=== PATIENT | male | born 1980 | race African-American/Black ===

== ENCOUNTER 2021-01-12 12:51 | Inpatient (IN) | payer OTHER ==
[~2021-01-12] VITALS: Ht 177.8 cm; Wt 151.3 kg
[2021-01-12 13:56] LABS: BASOPHIL 0.4 % (0-2); EOSINOPHIL 1.3 % (0-5); HCT 34.9 % (42.0-52.0); HGB 11.8 g/dl (13.2-18.0); LYMPHOCYTE 14.3 % (15-48); MCH 30.4 pg (25.0-31.0); MCHC 33.8 g/dL (32.0-36.0); MCV 89.9 fL (78.0-100.0); MPV 11.7 fL (6.0-9.5); NEUTROPHIL 74.5 % (41-80); NRBC 0; PLT 155 K/uL (150-400); RBC 3.88 M/uL (4.70-6.00); RDW 14.5 % (11.5-14.0)
[2021-01-12 14:07] LABS: ALBUMIN 3.5 g/dL (3.4-5.0); BILIRUBIN - TOTAL 0.9 mg/dL (0.2-1.0); BUN/CREAT RATIO (CALC) 10.3 RATIO; CREATININE 2.73 mg/dL (0.67-1.17); GLOBULIN (CALCULATION) 4.8 g/dL; POTASSIUM 3.2 mmol/L (3.5-5.1); TOTAL PROTEIN 8.3 g/dL (6.4-8.2)
[2021-01-12 14:20] LABS: BILIRUBIN NEGATIVE (NEGATIVE); BLOOD 1+ Ery/uL (NEGATIVE); CLARITY CLEAR (CLEAR); COLOR YELLOW (YELLOW); GLUCOSE (U) NORMAL (NORMAL); LEUKOCYTES NEGATIVE Leu/uL (NEGATIVE); NITRITE NEGATIVE (NEGATIVE); PROTEIN 2+ mg/dL (NEGATIVE); SPECIFIC GRAVITY 1.015 (1.001-1.030); UROBILINOGEN 0.2 mg/dL (0.2-1.0); pH 6.5 (5.0-9.0)
[2021-01-12 14:38] LABS: BACTERIA TRACE; SQUAMOUS EPITHELIAL CELLS RARE
--- NOTE | 2021-01-12 17:18 | NUR ---
MANUAL BP OD 200/115, BP ON MONITOR AT THIS TIME IS 211/121 MAP 147
--- NOTE | 2021-01-13 01:31 | NUR ---
PT. C/O SHORTNESS OF BREATH AROUND 0045. PT WAS ASSESSED BY RN AND RT. 2LNC PLACED ON PT. LUNGS ARE CLEAR. PT. STATES THAT HE FEELS LIKE HIS LUNGS ARE FINE BUT THEY ARE NOT EXPANDING ALL THE WAY. TROPONINS ARE TRENDING UP. PHLEBOTOMIST NOTIFIED AND CHEST XRAY WAS ORDERED ALONG WITH NITRO GTT. PT. REFUSED NITRO GTT DUE TO THE HEADACHE EFFECT. PT. STARTED BACK ON CARDENE AT 5MG/HR. PER PHLEBOTOMIST ORDERS. ER,RN
[2021-01-13 03:58] LABS: HGB 11.4 g/dl (13.2-18.0); MCH 30.8 pg (25.0-31.0); MCHC 34.5 g/dL (32.0-36.0); MCV 89.2 fL (78.0-100.0); MPV 11.9 fL (6.0-9.5); RBC 3.7 M/uL (4.70-6.00); RDW 14.4 % (11.5-14.0); WBC 9.7 K/uL (4.0-10.5)
[2021-01-13 04:26] LABS: ALBUMIN 3.4 g/dL (3.4-5.0); BILIRUBIN - TOTAL 0.7 mg/dL (0.2-1.0); BUN/CREAT RATIO (CALC) 10.6 RATIO; CREATININE 2.82 mg/dL (0.67-1.17); GLOBULIN (CALCULATION) 4.4 g/dL; MAGNESIUM 2.1 mg/dL (1.8-2.4); TOTAL PROTEIN 7.8 g/dL (6.4-8.2)
--- NOTE | 2021-01-13 05:29 | NUR ---
CONTACTED SR. CONSULTANT VIA PHONE AND IN PERSON THIS SHIFT OVER PT. C/O SHORTNESS OF AIR, GAS IN CENTER OF CHEST BELOW STERNUM, C/O NAUSEA, ABDOMINAL PAIN. SR. CONSULTANT PUT IN ORDERS AND THEY WERE CARRIED OUT BY ORDNANCE OFFICER,RN
[2021-01-13 13:10] LABS: IRON % SATURATION 22.4 %SAT (20-50)
[2021-01-13 16:35] LABS: BASOPHIL 0.3 % (0-2); EOSINOPHIL 0.7 % (0-5); HCT 32.3 % (42.0-52.0); HGB 10.8 g/dl (13.2-18.0); LYMPHOCYTE 12.1 % (15-48); MCH 30.4 pg (25.0-31.0); MCHC 33.4 g/dL (32.0-36.0); MONOCYTE 5.9 % (0-12); MPV 11.8 fL (6.0-9.5); NEUTROPHIL 80.5 % (41-80); NRBC 0; PLT 173 K/uL (150-400); RBC 3.55 M/uL (4.70-6.00); RDW 14.6 % (11.5-14.0); WBC 9.4 K/uL (4.0-10.5)
[2021-01-13 17:14] LABS: BUN/CREAT RATIO (CALC) 10.6 RATIO; CREATININE 3.29 mg/dL (0.67-1.17); POTASSIUM 3.1 mmol/L (3.5-5.1)
[2021-01-14 03:46] LABS: BASOPHIL 0.4 % (0-2); EOSINOPHIL 1.9 % (0-5); HCT 34.3 % (42.0-52.0); HGB 11.3 g/dl (13.2-18.0); LYMPHOCYTE 14.2 % (15-48); MCH 30.3 pg (25.0-31.0); MCHC 32.9 g/dL (32.0-36.0); MPV 11.7 fL (6.0-9.5); NEUTROPHIL 75.9 % (41-80); NRBC 0; PLT 191 K/uL (150-400); RBC 3.73 M/uL (4.70-6.00); RDW 14.6 % (11.5-14.0); WBC 11.7 K/uL (4.0-10.5)
[2021-01-14 04:11] LABS: ALBUMIN 3.3 g/dL (3.4-5.0); BILIRUBIN - TOTAL 0.6 mg/dL (0.2-1.0); BUN/CREAT RATIO (CALC) 11.1 RATIO; CREATININE 3.24 mg/dL (0.67-1.17); GLOBULIN (CALCULATION) 4.1 g/dL; MAGNESIUM 2.2 mg/dL (1.8-2.4); PHOSPHORUS 4.3 mg/dL (2.6-4.7); POTASSIUM 3.6 mmol/L (3.5-5.1); TOTAL PROTEIN 7.4 g/dL (6.4-8.2)
[2021-01-15 06:57] LABS: BASOPHIL 0.4 % (0-2); EOSINOPHIL 2.5 % (0-5); HCT 32.7 % (42.0-52.0); HGB 10.8 g/dl (13.2-18.0); LYMPHOCYTE 16.2 % (15-48); MCH 30.3 pg (25.0-31.0); MCV 91.9 fL (78.0-100.0); MONOCYTE 8.2 % (0-12); MPV 11.7 fL (6.0-9.5); NEUTROPHIL 72.3 % (41-80); NRBC 0; PLT 211 K/uL (150-400); RBC 3.56 M/uL (4.70-6.00); RDW 14.6 % (11.5-14.0); WBC 9.5 K/uL (4.0-10.5)
[2021-01-15 07:26] LABS: BUN/CREAT RATIO (CALC) 12.9 RATIO; CREATININE 3.11 mg/dL (0.67-1.17); POTASSIUM 3.6 mmol/L (3.5-5.1)
--- NOTE | 2021-01-16 19:04 | NUR ---
153 dr. proctor was notifed that the patient blood pressure was elevated 181/117. dr bryant reports that he did not was to give any more medications for the blood pressure. patient already had many blood pressure medications today and did not was his blood pressure to drop to low. will monitor for changes in the blood pressure.
--- NOTE | 2021-01-17 03:28 | NUR ---
PTS BP @ 2045 181/119, 50MG HYDRALAZINE, 50MG LOPRESSOR & 0.5MG XANAX ADMINISTRED @ 2100. BP @2230 178/116, 0.1 MG CATAPRES & 10 MG HYDRALAZINE ADMIN. BP @ 0250 193/129 & 183/124, 20 MG IVP. CONSULTING ACTING JOSUE/PAUL. VERBALLY PT IS INSISTING THAT HE WILL BE LEAVING TOMORROW "NO MATTER WHAT". EDUCATED PT THE DANGERS OF HIS ELEVATED BP (I.E. STROKE, DISABILITY & POSS ). PT RESPONDED "I KNOW ALL OF THIS, I'VE DEALT WITH THIS BEFORE. I'VE GOT STUFF TO DO AND I'LL BE LEAVING TOMORROW!" PT REMAINS RESPECTFUL DESPITE VENTING. ENCOURAGED PT TO CALL OUT IF BEGAN FEELING ILL, DIZZY OR IF HAD ANOTHER NEED. PT STATES "I FEEL FINE". MONITORING.
[2021-01-17 05:56] LABS: BASOPHIL 0.5 % (0-2); EOSINOPHIL 2.5 % (0-5); HCT 33.1 % (42.0-52.0); HGB 10.8 g/dl (13.2-18.0); LYMPHOCYTE 13.1 % (15-48); MCH 30.3 pg (25.0-31.0); MCHC 32.6 g/dL (32.0-36.0); MCV 92.7 fL (78.0-100.0); MONOCYTE 8.6 % (0-12); MPV 11.9 fL (6.0-9.5); NEUTROPHIL 74.8 % (41-80); NRBC 0; PLT 216 K/uL (150-400); RBC 3.57 M/uL (4.70-6.00); RDW 14.7 % (11.5-14.0); WBC 8.3 K/uL (4.0-10.5)
[2021-01-17 06:19] LABS: BUN/CREAT RATIO (CALC) 12.6 RATIO; CREATININE 2.54 mg/dL (0.67-1.17); POTASSIUM 3.9 mmol/L (3.5-5.1)
[2021-01-17] MEDS ORDERED: NORVASC5 MG PO (15:20)
[2021-01-17] MEDS ORDERED: ALDACTONE25 MG PO (15:20)
[2021-01-17] MEDS ORDERED: LOPRESSOR50 MG PO (15:20)
[2021-01-17] MEDS ORDERED: HCTZ25 MG PO (15:20)
[2021-01-17] MEDS ORDERED: CLONIDINE HCL0.1 MG PO (15:20)
[2021-01-17] MEDS ORDERED: HYDRALAZINE HCL25 MG PO (15:20)
== END 2021-01-17 16:54 | disposition home or self-care (01) | DRG 291 ==
LOC: FER 12:51 → FICU 14:38 → FMS 14:38 → FTCU 01-14 19:06 → FMS 01-16 12:55
PROVIDERS: Emergency Medicine; Family Medicine; Internal Medicine Cardiovascular Disease; ADMIT Internal Medicine
DX: I11.0 Hypertensive heart disease with heart failure (principal); I50.31 Acute diastolic (congestive) heart failure; J96.01 Acute respiratory failure with hypoxia; J18.9 Pneumonia, unspecified organism; I16.1 Hypertensive emergency; N17.9 Acute kidney failure, unspecified; Z20.822 Contact with and (suspected) exposure to COVID-19; H35.031 Hypertensive retinopathy, right eye; E87.6 Hypokalemia; E26.09 Other primary hyperaldosteronism; Z91.018 Allergy to other foods; Z98.890 Other specified postprocedural states
CPT/HCPCS: 36415; 36600; 70450; 71045; 71250; 80048; 80053; 81001; 82088; 82607; 82803; 83540; 83550; 83605; 83735; 83880; 84100; 84145; 84443; 84484; 85025; 85730; 87088; 93005; 94640; 94668; J0360; J0696; J1644; J1650; J1940; J2185; J2550; J3490; U0002

== ENCOUNTER 2021-06-16 11:14 | Inpatient (IN) | payer OTHER ==
[~2021-06-16] VITALS: Ht 177.8 cm; Wt 146.6 kg
[~2021-06-16 11:14] MED LIST: ALDACTONE25 MG PO; CLONIDINE HCL0.1 MG PO; HCTZ25 MG PO; HYDRALAZINE HCL25 MG PO; LOPRESSOR50 MG PO; NORVASC5 MG PO
[2021-06-16 12:19] LABS: BASOPHIL 0.3 % (0-2); EOSINOPHIL 0.7 % (0-5); HCT 45.6 % (42.0-52.0); HGB 14.9 g/dl (13.2-18.0); LYMPHOCYTE 7.3 % (15-48); MCH 29.9 pg (25.0-31.0); MCHC 32.7 g/dL (32.0-36.0); MCV 91.6 fL (78.0-100.0); MONOCYTE 7.4 % (0-12); MPV 12.5 fL (6.0-9.5); NRBC 0; PLT 184 K/uL (150-400); RBC 4.98 M/uL (4.70-6.00); RDW 13.2 % (11.5-14.0); WBC 8.6 K/uL (4.0-10.5)
[2021-06-16 12:21] LABS: BILIRUBIN NEGATIVE (NEGATIVE); BLOOD 1+ Ery/uL (NEGATIVE); CLARITY CLEAR (CLEAR); COLOR YELLOW (YELLOW); GLUCOSE (U) 3+ mg/dL (NORMAL); LEUKOCYTES NEGATIVE Leu/uL (NEGATIVE); NITRITE NEGATIVE (NEGATIVE); PROTEIN NEGATIVE (NEGATIVE); SPECIFIC GRAVITY <=1.005 (1.001-1.030); UROBILINOGEN 0.2 mg/dL (0.2-1.0)
[2021-06-16 12:39] LABS: INFLUENZA A NAA NEGATIVE (NEGATIVE)
[2021-06-16 12:44] LABS: ALBUMIN 4.4 g/dL (3.4-5.0); BILIRUBIN - TOTAL 0.7 mg/dL (0.2-1.0); BUN/CREAT RATIO (CALC) 14.7 RATIO; CREATININE 2.86 mg/dL (0.67-1.17); POTASSIUM 4.7 mmol/L (3.5-5.1); TOTAL PROTEIN 9.4 g/dL (6.4-8.2)
[2021-06-16 12:45] LABS: CORONAVIRUS 2019 SARS-COV-2 POSITIVE (NEGATIVE)
[2021-06-16 15:17] LABS: CREATININE 2.8 mg/dL (0.67-1.17); POTASSIUM 4.9 mmol/L (3.5-5.1)
[2021-06-16] MEDS ORDERED: CLONIDINE HCL0.1 MG PO (17:32)
[2021-06-16] MEDS ORDERED: HYDRALAZINE25 MG PO (17:32)
[2021-06-17 04:52] LABS: BASOPHIL 0.4 % (0-2); EOSINOPHIL 3.5 % (0-5); HCT 40.4 % (42.0-52.0); HGB 13.5 g/dl (13.2-18.0); LYMPHOCYTE 20.7 % (15-48); MCH 30.1 pg (25.0-31.0); MCHC 33.4 g/dL (32.0-36.0); MONOCYTE 9.6 % (0-12); NEUTROPHIL 65.4 % (41-80); NRBC 0; PLT 156 K/uL (150-400); RBC 4.49 M/uL (4.70-6.00); RDW 13.2 % (11.5-14.0); WBC 8.5 K/uL (4.0-10.5)
[2021-06-17 05:20] LABS: BUN/CREAT RATIO (CALC) 13.2 RATIO; CREATININE 2.66 mg/dL (0.67-1.17); POTASSIUM 3.8 mmol/L (3.5-5.1)
[2021-06-18 07:07] LABS: BUN/CREAT RATIO (CALC) 11.5 RATIO; CREATININE 2.34 mg/dL (0.67-1.17); MAGNESIUM 1.8 mg/dL (1.8-2.4); POTASSIUM 3.6 mmol/L (3.5-5.1)
[2021-06-19 07:19] LABS: BUN/CREAT RATIO (CALC) 12.7 RATIO; CREATININE 2.12 mg/dL (0.67-1.17); POTASSIUM 3.5 mmol/L (3.5-5.1)
--- NOTE | 2021-06-20 13:26 | NUR ---
SPOKE WITH PT VIA PHONE. PT. RESIDES WITH HIS SISTER. HE IS EMPLOYED. HE HAS A PRIMARY CARE PHYSCIAIN, DR. ZEYNEP CARCAMO. PT. STATES THAT HE IS INDPENEDENT AND CURRENTLY HAS NO NEEDS. CHECK WITH HIS NURSE, GENIE AND SHE CONFIRMED THAT HE HAS NO DISCHARGE NEEDS AT THIS TIME.
[2021-06-20] MEDS ORDERED: LEVEMIR FL100 UNIT/1 SC (14:32)
[2021-06-20] MEDS ORDERED: NORVASC5 MG PO (14:32)
[2021-06-20] MEDS ORDERED: CLONIDINE HCL0.1 MG PO (14:32)
[2021-06-20] MEDS ORDERED: PEPCID AC20 MG PO (14:32)
[2021-06-20] MEDS ORDERED: NOVOLOG FL100 UNIT/1 SC (14:32)
[2021-06-20] MEDS ORDERED: HYDRALAZINE25 MG PO (14:32)
[2021-06-20] MEDS ORDERED: GLUCOTROL XL5 MG PO (14:32)
[2021-06-20] MEDS ORDERED: ALDACTONE25 MG PO (14:32)
[2021-06-20] MEDS ORDERED: HCTZ25 MG PO (14:32)
== END 2021-06-20 15:18 | disposition home or self-care (01) | DRG 637 ==
LOC: FER 11:14 → FMS 13:32
PROVIDERS: Emergency Medicine; ADMIT Internal Medicine
DX: E11.00 Type 2 diabetes mellitus with hyperosmolarity without nonketotic hyperglycemic-hyperosmolar coma (NKHHC) (principal); U07.1 COVID-19; N18.4 Chronic kidney disease, stage 4 (severe); N17.9 Acute kidney failure, unspecified; Z68.42 Body mass index [BMI] 45.0-49.9, adult; E85.4 Organ-limited amyloidosis; I43 Cardiomyopathy in diseases classified elsewhere; I12.9 Hypertensive chronic kidney disease with stage 1 through stage 4 chronic kidney disease, or unspecified chronic kidney disease; E66.01 Morbid (severe) obesity due to excess calories; Z91.018 Allergy to other foods; Z79.899 Other long term (current) drug therapy; Z71.3 Dietary counseling and surveillance
CPT/HCPCS: 36415; 36600; 80048; 80053; 81001; 82009; 82803; 82947; 82962; 83036; 83735; 85025; 94010; G0480; J1650; J1815; J3490; J7030; U0002